=== PATIENT | male | born 1965 | race Hispanic/Latino ===

== ENCOUNTER 2020-04-06 10:14 | Day surgery (SDC) | payer OTHER ==
[2020-04-05 13:51] LABS: Absolute Lymphocytes (CBC) 2.4 K/uL (0.7-4.9); Basophils % 0.6 % (0-1.3); Hematocrit 41.9 % (39.6-49.0); Lymphocytes % 38.7 % (15.3-44.8); MPV 9.4 fL (7.6-11.3)
[2020-04-05 14:04] LABS: Potassium 3.9 mmol/L (3.5-5.1)
--- NOTE | 2020-04-05 15:08 | RAD REPORT ---
EXAM DESCRIPTION: RAD - Chest Pa And Lat (2 Views) - 04/05/2020 2:37 pm CLINICAL HISTORY: pre op Chest pain. COMPARISON: No comparisons FINDINGS: The lungs are clear. The heart is normal in size. No displaced fractures. IMPRESSION: No acute or concerning finding suspected.
[2020-04-06] MEDS ORDERED: Ringers Lactate 1,000 ML IV ONE (10:58)
[2020-04-06] MEDS: CEFAZOLIN/SWI 1gm 1 GM/10 ML SYR ONE ×2 (11:18→11:55)
[2020-04-06] MEDS ORDERED: MIDAZOLAM HCL 2 MG/2 ML INJ ONE (11:54)
[2020-04-06] MEDS ORDERED: propofoL 200 MG/20 ML VIAL IV ONE (11:54)
[2020-04-06] MEDS ORDERED: FENTANYL CITR 100 MCG/2 ML ONE (11:55)
[2020-04-06] MEDS ORDERED: LIDOCAINE 2% MPF 5 ML VIAL ONE (11:55)
--- NOTE | 2020-04-06 12:20 | P.BOP ---
Preoperative diagnosis: right first toe cellullitis, abscess, ingrown nail Postoperative diagnosis: same Primary procedure: incision, drainage with subQ debridment of right first toe ulcer,abscess Secondary procedure: partial nail removal Estimated blood loss: <5cc Specimen: culture Findings: as above Anesthesia: General Complications: None Transferred to: Recovery Room Condition: Good
[2020-04-06] MEDS ORDERED: ONDANSETRON 4 MG/2 ML VIAL ONE (12:48)
--- NOTE | 2020-04-06 13:00 | EKG ---
Test Date: 2020-04-05 Test Time: 14:03:15 Scoreboard Operator: TG MEASUREMENT RESULTS: Intervals: Rate: 56 WY: 166 QRSD: 94 QT: 418 QTc: 403 [place]: P: 38 W[place]: 166 QRS: -2 T: 24 INTERPRETIVE STATEMENTS: Sinus bradycardia Inferior infarct, age undetermined Cannot rule out Anterior infarct, age undetermined Abnormal ECG No previous ECG available for comparison Electronically Signed On 04-06-20 12:59:14 CDT by Iglesia Hopper
[2020-04-06 13:23] VITALS: BP 108/72; TEMP 97; O2SAT 98
--- NOTE | 2020-04-06 13:28 | DS ---
Diagnosis: Right first toe cellulitis, abscess, ingrown nail. Procedure: Incision and drainage of an abscess with subcutaneous debridement, right first toe. Disposition: Home. Plan: Bactroban to the area twice a day, may clean with soap and water. Continue with antibiotics. We are going to give him for pain Tylenol No.3 q.4 hours p.r.n. pain and a saline solution prescript ion. Follow up in my office in 1 week. TERRIE/DESIRE Voice ID: [id number] Report ID: [id number]
--- NOTE | 2020-04-06 13:28 | OP ---
Date of Procedure: 04/06/2020 Surgeon: Ciaran Wilson MD Preoperative Diagnosis: Right toe cellulitis, abscess, ingrowing nail. Postoperative Diagnosis: Right toe cellulitis, abscess, ingrowing nail. Procedure: Incision and drainage with subcutaneous debridement of right first toe ulcer. The area i s about 2 x 2 cm with partial removal of the nail. Findings: The patient has partial broken nail on the medial side of right first toe, pieces of the n ail present. They were removed. This is creating an abscess that was explored and drained and devit alized tissue with ulceration were debrided. Area was irrigated. Hemostasis was obtained. The raciel ent tolerated the procedure well. TERRIE/DESIRE Voice ID: [id number] Report ID: [id number]
[2020-04-06] MEDS ORDERED: CODEINE 30MG/APAP 300MG TAB ONE (14:04)
== END 2020-04-06 14:10 | disposition home or self-care (01) ==
LOC: OR 10:14
PROVIDERS: ATTEND Surgery
PROC: 0J9Q0ZZ Drainage of Right Foot Subcutaneous Tissue and Fascia, Open Approach (ICD-10-PCS; principal; 2020-04-06 14:00)
DX: L02.611 Cutaneous abscess of right foot (principal); L60.0 Ingrowing nail; L03.031 Cellulitis of right toe; Z20.828 Contact with and (suspected) exposure to other viral communicable diseases
CPT/HCPCS: 93005; 87070; 85025; 80048; 36415; 87205; 87077; 87186; 71046; 10060; U0002; J2704; J2250; J3010; J0690; J7120; J2405